=== PATIENT | female | born 1995 | race African-American/Black ===

== ENCOUNTER 2016-07-07 14:54 | Emergency (ER) | payer MEDICAID ==
[2016-07-07] MEDS ORDERED: LIDOCAINE 2% VISCOUS SOLN 20 ML UDCUP PO ONE (15:57)
[2016-07-07] MEDS ORDERED: MAG HYDROX/AL HYDROX/SIMETH SUSP 30 ML UDCUP PO ONE (15:57)
--- NOTE | 2016-07-07 15:59 | ER Document Report ---
ED Medical Screen (RME) - General Chief Complaint: Abdominal Pain Stated Complaint: ABDOMINAL PAIN Time Seen by Provider: 07/07/16 15:56 Mode of Arrival: Ambulatory Information source: Patient Notes: Complains of upper abdominal pain for the past week. Patient denies any nausea , vomiting or diarrhea. Patient denies any fever or cough. Patient states last bowel movement was over 10 days ago. hx: TRAVEL OUTSIDE OF THE [place] IN LAST 30 DAYS: No - Related Data Allergies/Adverse Reactions: No Known Allergies Allergy (Verified 09/13/15 18:46) Past Medical History - Social History Chew tobacco use (# tins/day): No Frequency of alcohol use: None Drug Abuse: None Renal/ Medical History: Denies: Hx Peritoneal Dialysis Surgical Hx: Negative - Immunizations Hx Diphtheria, Pertussis, Tetanus Vaccination: Yes Physical Exam - Vital signs Vitals: Temp Pulse Resp BP Pulse Ox 98.7 F 82 14 113/62 100 07/07/16 15:00 07/07/16 15:00 07/07/16 15:00 07/07/16 15:00 07/07/16 15:00 - Abdominal Tenderness: Tender - Epigastric Course - Vital Signs Vital signs: Temp Pulse Resp BP Pulse Ox 98.7 F 82 14 113/62 100 07/07/16 15:00 07/07/16 15:00 07/07/16 15:00 07/07/16 15:00 07/07/16 15:00
[2016-07-07 16:50] LABS: ABSOLUTE EOSINOPHILS # (AUTO) 0.1 10^3/uL (0.0-0.6); ABSOLUTE LYMPHOCYTES (AUTO) 1.7 10^3/uL (0.5-4.7); ABSOLUTE MONOCYTES (AUTO) 0.4 10^3/uL (0.1-1.4); ABSOLUTE NEUT (AUTO) 3.9 10^3/uL (1.7-8.2); BASOPHILS % (AUTO) 0.4 % (0-2); EOSINOPHILS % (AUTO) 2.3 % (0-6); HEMATOCRIT 35.9 % (36.0-47.0); HEMOGLOBIN 11.8 g/dL (12.0-15.5); HGB HCT DIFFERENCE -0.5; LYMPHOCYTES % (AUTO) 27.2 % (13-45); MEAN CORPUSCULAR HEMOGLOBIN 26.3 pg (27.0-33.4); MEAN CORPUSCULAR HGB CONC 32.8 g/dL (32.0-36.0); MEAN CORPUSCULAR VOLUME 80 fl (80-97); MONOCYTES % (AUTO) 6.1 % (3-13); RED BLOOD COUNT 4.47 10^6/uL (3.72-5.28); RED CELL DISTRIBUTION WIDTH 14.1 % (11.5-14.0); WHITE BLOOD COUNT 6.1 10^3/uL (4.0-10.5)
[2016-07-07 17:07] LABS: ALANINE AMINOTRANSFERASE 70 U/L (9-52); ALBUMIN 4.3 g/dL (3.5-5.0); ALKALINE PHOSPHATASE 65 U/L (38-126); ANION GAP 14 (5-19); ASPARTATE AMINO TRANSFERASE 53 U/L (14-36); BILIRUBIN,DIRECT 0.2 mg/dL (0.0-0.4); BILIRUBIN,TOTAL 0.4 mg/dL (0.2-1.3); BLOOD UREA NITROGEN 5 mg/dL (7-20); CALCIUM 9.7 mg/dL (8.4-10.2); CARBON DIOXIDE 22 mmol/L (22-30); CHLORIDE 106 mmol/L (98-107); CREATININE RESULT 0.82 mg/dL (0.52-1.25); GLUCOSE 81 mg/dL (75-110); LIPASE 135.8 U/L (23-300); POTASSIUM 4.3 mmol/L (3.6-5.0); SODIUM 141.6 mmol/L (137-145); TOTAL PROTEIN 7.8 g/dL (6.3-8.2)
[2016-07-07 17:42] LABS: APPEARANCE,URINE CLOUDY; BILIRUBIN,URINE NEGATIVE (NEGATIVE); GLUCOSE, URINE NEGATIVE (NEGATIVE); KETONES,URINE NEGATIVE (NEGATIVE); LEUKOCYTE ESTERASE,URINE MODERATE (NEGATIVE); NITRITE,URINE NEGATIVE (NEGATIVE); PROTEIN,URINE NEGATIVE (NEGATIVE); URINE SPECIFIC GRAVITY 1.024; UROBILINOGEN,URINE NEGATIVE mg/dL (<2.0)
[2016-07-07 18:18] LABS: ADD ON TESTING BLD IN LAB ACKNOWLEDGE
[2016-07-07] MEDS ORDERED: CEPHALEXIN 250 MG CAPSULE PO ONE (19:43)
--- NOTE | 2016-07-07 19:44 | ER Document Report ---
ED GI/ - General Chief Complaint: Abdominal Pain Stated Complaint: ABDOMINAL PAIN Time Seen by Provider: 07/07/16 15:56 Mode of Arrival: Ambulatory Information source: Patient Notes: Patient is a 21-year-old who presents to the ER today for upper abdominal pain 1 week that has been constant and "achy" in nature. Patient admits to nausea but no vomiting or diarrhea. She has no history of stomach ulcers that she knows of. She has had increased belching and gas pains, but denies constipation. Last bowel movement was yesterday and normal. She denies any fever, chills, dysuria, abnormal vaginal discharge, lower abdominal pain. TRAVEL OUTSIDE OF THE [place] IN LAST 30 DAYS: No - Related Data Allergies/Adverse Reactions: No Known Allergies Allergy (Verified 09/13/15 18:46) Past Medical History - General Information source: Patient - Social History Smoking Status: Never Smoker Chew tobacco use (# tins/day): No Frequency of alcohol use: None Drug Abuse: None Family History: Reviewed & Not Pertinent Renal/ Medical History: Denies: Hx Peritoneal Dialysis Surgical Hx: Negative - Immunizations Hx Diphtheria, Pertussis, Tetanus Vaccination: Yes Review of Systems - Review of Systems Constitutional: No symptoms reported EENT: No symptoms reported Cardiovascular: No symptoms reported Respiratory: No symptoms reported Gastrointestinal: See HPI Genitourinary: No symptoms reported Female Genitourinary: No symptoms reported Musculoskeletal: No symptoms reported Skin: No symptoms reported Hematologic/Lymphatic: No symptoms reported Neurological/Psychological: No symptoms reported Physical Exam - Vital signs Vitals: Temp Pulse Resp BP Pulse Ox 98.7 F 82 14 113/62 100 07/07/16 15:00 07/07/16 15:00 07/07/16 15:00 07/07/16 15:00 07/07/16 15:00 - Notes Notes: Potassium PHYSICAL EXAMINATION: GENERAL: Well-appearing and in no acute distress. HEAD: Atraumatic, normocephalic. EYES: Pupils equal round and reactive to light, extraocular movements intact, sclera anicteric, conjunctiva are normal. NECK: Normal range of motion, supple without lymphadenopathy LUNGS: CTAB and equal. No wheezes rales or rhonchi. HEART: Regular rate and rhythm without murmurs ABDOMEN: Soft, Mild epigastric tenderness. No guarding, no rebound BACK: no vertebral tenderness, normal ROM GI/: no CVA tenderness EXTREMITIES: Normal range of motion, no pitting edema. No cyanosis. NEUROLOGICAL: Cranial nerves grossly intact. Normal sensory/motor exams. PSYCH: Normal mood, normal affect. SKIN: Warm, Dry, normal turgor, no rashes or lesions noted Course - Re-evaluation Re-evalutation: 07/07/16 20:03 patient's serum hCG is positive, patient did not know she was . She is denying any pelvic pain, abnormal vaginal discharge or bleeding. At this time his GI cocktail did relieve her epigastric pain. I will treat her with Carafate and Zantac prescriptions and have advised her to start vitamins and call for an appointment for [facility]. - Vital Signs Vital signs: Temp Pulse Resp BP Pulse Ox 98.7 F 84 17 115/65 99 07/07/16 15:00 07/07/16 20:21 07/07/16 20:21 07/07/16 20:21 07/07/16 20:21 - Laboratory Result Diagrams: 07/07/16 16:31 07/07/16 16:31 Laboratory results interpreted by me: 07/07/16 07/07/16 07/07/16 16:31 16:31 16:31 Hgb 11.8 L Hct 35.9 L MCH 26.3 L RDW 14.1 H BUN 5 L AST 53 H ALT 70 H Serum HCG, Qual POSITIVE H Beta HCG, Quant Ur Leukocyte Esterase 07/07/16 07/07/16 16:31 16:31 Hgb Hct MCH RDW BUN AST ALT Serum HCG, Qual Beta HCG, Quant 4339.60 H Ur Leukocyte Esterase MODERATE H Discharge - Discharge Clinical Impression: Epigastric pain Qualifiers: Weeks of gestation: less than 8 weeks Qualified Code(s): Z3A.01 - Less than 8 weeks gestation of Condition: Stable Disposition: HOME, SELF-CARE Additional Instructions: Start vitamins! Return immediately for any new or worsening symptoms. Follow up with [facility]/primary care provider, call tomorrow to make followup appointment. Prescriptions: Ranitidine HCl [Zantac 75 mg Tablet] 1 - 2 tab PO Q12 PRN #30 tablet PRN Reason: Sucralfate [Carafate 1 gm Tablet] 1 gm PO ACHS #40
[2016-07-07] MEDS ORDERED: SUCRALFATE 1 GM TABLET PO ONE (19:59)
[2016-07-07] MEDS ORDERED: FAMOTIDINE 20 MG TABLET PO ONE (19:59)
[2016-07-07 20:23] VITALS: BP 115/65
== END 2016-07-07 20:21 | disposition home or self-care (01) ==
LOC: ER 14:54
DX: O26.891 Other specified pregnancy related conditions, first trimester (principal); R10.13 Epigastric pain; R11.0 Nausea; R14.2 Eructation; R14.1 Gas pain; Z3A.01 Less than 8 weeks gestation of pregnancy
CPT/HCPCS: 99284; 36415; 84702; 83690; 84703; 85025; 80053; 81001; J3490

== ENCOUNTER 2017-02-02 13:46 | Outpatient (CLI) | payer MEDICAID ==
[2017-02-02 15:23] LABS: APPEARANCE,URINE CLEAR; BILIRUBIN,URINE NEGATIVE (NEGATIVE); GLUCOSE, URINE NEGATIVE (NEGATIVE); KETONES,URINE NEGATIVE (NEGATIVE); LEUKOCYTE ESTERASE,URINE TRACE (NEGATIVE); NITRITE,URINE NEGATIVE (NEGATIVE); PROTEIN,URINE NEGATIVE (NEGATIVE); URINE SPECIFIC GRAVITY 1.004; UROBILINOGEN,URINE NEGATIVE mg/dL (<2.0)
[2017-02-02 15:35] LABS: URINE BARBITURATES SCREEN NEGATIVE; URINE METHADONE SCREEN NEGATIVE; URINE OPIATES LOW NEGATIVE; URINE PHENCYCLIDINE SCREEN NEGATIVE
--- NOTE | 2017-02-02 15:41 | Non Stress Test Report ---
Non Stress Test Datetime Report Generated by CPN: 02/02/2017 15:41 DEMOGRAPHIC EGA NST: 35.1 INDICATION Indication for Study: Ordered by Provider MONITORING Monitor Explained: Monitor Explained; Test Explained; Patient Verbalized Understanding Time on Monitor: 02/02/2017 13:35 Time off Monitor: 02/02/2017 15:22 NST Duration: 107 NST INTERVENTIONS NST Interventions: PO Hydration; Reposition Patient Physician Notified NST: P Luna CNM BABY A: [id number] BABY A Movement : Present Contraction Frequency : x2 FHR Baseline : 155 Accelerations : 15X15 Decelerations : None Variability : Moderate 6-25bpm NST Review: Meets Criteria for Reactive NST NST Review and Verified By : VANNESA Mckeon Results: Reactive NST REPORT Report Trigger: Send Report
== END 2017-02-02 15:36 | disposition home or self-care (01) ==
LOC: LC 13:46
PROVIDERS: ATTEND Student in an Organized Health Care Education/Training Program
PROC: 4A1HXCZ Monitoring of Products of Conception, Cardiac Rate, External Approach (ICD-10-PCS; principal; 2017-02-02)
DX: O98.813 Other maternal infectious and parasitic diseases complicating pregnancy, third trimester (principal); B37.9 Candidiasis, unspecified; Z3A.35 35 weeks gestation of pregnancy
CPT/HCPCS: 59025; 80307; 81001; 87210

== ENCOUNTER 2017-02-09 09:45 | Outpatient (CLI) | payer MEDICAID | END 2017-02-09 11:31 | disposition home or self-care (01) | LOC: LC 09:45 | PROVIDERS: ATTEND Obstetrics & Gynecology | PROC: 4A1HXCZ Monitoring of Products of Conception, Cardiac Rate, External Approach (ICD-10-PCS; principal; 2017-02-09) | DX: O47.03 False labor before 37 completed weeks of gestation, third trimester (principal); Z3A.35 35 weeks gestation of pregnancy | CPT/HCPCS: 59025 ==

== ENCOUNTER 2017-03-04 21:37 | Inpatient (IN) | payer MEDICAID ==
--- NOTE | 2017-03-04 21:43 | Non Stress Test Report ---
Non Stress Test Datetime Report Generated by CPN: 03/04/2017 21:43 DEMOGRAPHIC EGA NST: 35.1 INDICATION Indication for Study: Other Indication for Study (NST) Other: labor check MONITORING Monitor Explained: Monitor Explained; Test Explained; Patient Verbalized Understanding Time on Monitor: 02/09/2017 10:05 Time off Monitor: 02/09/2017 11:23 NST Duration: 78 NST INTERVENTIONS NST Interventions: None Physician Notified NST: AWynn CNM BABY A: [id number] BABY A Movement : Present Contraction Frequency : Irregular FHR Baseline : 135 Accelerations : 15X15 Decelerations : None Variability : Moderate 6-25bpm NST Review: Meets Criteria for Reactive NST NST Review and Verified By : A Agrawal RN NST Results: Reactive NST REPORT Report Trigger: Send Report
[2017-03-04 22:02] LABS: APPEARANCE,URINE CLOUDY; BILIRUBIN,URINE NEGATIVE (NEGATIVE); COLOR,URINE YELLOW; GLUCOSE, URINE NEGATIVE (NEGATIVE); KETONES,URINE NEGATIVE (NEGATIVE); LEUKOCYTE ESTERASE,URINE MODERATE (NEGATIVE); NITRITE,URINE NEGATIVE (NEGATIVE); PROTEIN,URINE NEGATIVE (NEGATIVE); URINE SPECIFIC GRAVITY 1.006; UROBILINOGEN,URINE NEGATIVE mg/dL (<2.0)
[2017-03-04 22:22] LABS: URINE AMPHETAMINES SCREEN NEGATIVE; URINE BARBITURATES SCREEN NEGATIVE; URINE BENZODIAZEPINES SCREEN NEGATIVE; URINE COCAINE SCREEN NEGATIVE; URINE MARIJUANA (THC) SCREEN NEGATIVE; URINE METHADONE SCREEN NEGATIVE; URINE PHENCYCLIDINE SCREEN NEGATIVE
[2017-03-04] MEDS ORDERED: CEFAZOLIN INJ 1 GM VIAL ONE (23:21)
[2017-03-04] MEDS ORDERED: CITRIC ACID/SODIUM CITRATE ORAL SOLN 15 ML UDCUP ONE (23:21)
[2017-03-04] MEDS ORDERED: CEFAZOLIN 2 GM/D5W RTU 2 GM/50 ML RTUPB IV ONE (23:21)
[2017-03-04 23:49] LABS: ABSOLUTE MONOCYTES (AUTO) 0.7 10^3/uL (0.1-1.4); ABSOLUTE NEUT (AUTO) 5.5 10^3/uL (1.7-8.2); BASOPHILS % (AUTO) 0.4 % (0-2); EOSINOPHILS % (AUTO) 0.3 % (0-6); HEMATOCRIT 28.2 % (36.0-47.0); HEMOGLOBIN 9.3 g/dL (12.0-15.5); LYMPHOCYTES % (AUTO) 24.2 % (13-45); MEAN CORPUSCULAR HEMOGLOBIN 23.9 pg (27.0-33.4); MEAN CORPUSCULAR VOLUME 72 fl (80-97); MONOCYTES % (AUTO) 8.8 % (3-13); PLATELET COUNT 232 10^3/uL (150-450); RED CELL DISTRIBUTION WIDTH 17.6 % (11.5-14.0); SEGMENTED NEUTROPHILS % (AUTO) 66.3 % (42-78); TOTAL CELLS COUNTED % (AUTO) 100 %; WHITE BLOOD COUNT 8.3 10^3/uL (4.0-10.5)
[2017-03-04] MEDS ORDERED: OXYTOCIN 10 UNIT/ML VIAL ONE (23:49)
[2017-03-04] MEDS ORDERED: FENTANYL CITRATE INJ/PF 100 MCG/2 ML AMPUL ONE (23:49)
[2017-03-04] MEDS ORDERED: MIDAZOLAM 2 MG/2 ML INJ ONE (23:49)
[2017-03-04] MEDS ORDERED: MORPHINE SULFATE 10 MG/ML INJ ONE (23:49)
[2017-03-04] MEDS ORDERED: OXYTOCIN/NORMAL SALINE 20 UNIT/1,000 ML RTUINJ ONE (23:49)
[2017-03-05] MEDS ORDERED: MEPERIDINE HCL/PF INJ 25 MG/1 ML DISP.SYRIN ONE ×2 (01:17→01:31)
[2017-03-05] MEDS ORDERED: MISOPROSTOL 0.2 MG TABLET ONE (01:32)
[2017-03-05] MEDS ORDERED: FENTANYL CITRATE INJ/PF 100 MCG/2 ML AMPUL ONE (02:01)
--- NOTE | 2017-03-05 02:13 | Delivery Summary ---
Del Sum A-C Datetime Report Generated by CPN: 03/05/2017 02:12 DELIVERY PERSONNEL DELIVERY PERSONNEL: [id number] Delivery Doctor:: Dr. Montes De Oca Anesthesiologist:: Giovana Judge MD PUTTY REMOVER:: Herson Rodriguez CRNA Labor and Delivery Nurse:: Cynthia Encarnacion RN Neonatal Nurse Practitioner:: YULISA Ramsey Nursery Nurse:: Cassie Vegas RN Emergency Planning And Response Manager/VIBRATION TECHNICIAN: Bhavani Osman CST Emergency Planning And Response Manager/VIBRATION TECHNICIAN: Margarita Kessler, ST MATERNAL INFORMATION Delivery Anesthesia: Spinal Medications After Delivery: Pitocin Bolus-Please Comment Meds After Delivery Comment: pitocin 20 units in 1000 ml NS Maternal Complications: Precipitous Labor (<3hrs) LABOR SUMMARY EDC: 03/15/2017 00:00 No. Babies in Womb: 0 Attempted: No Labor Anesthesia: None LABOR INFORMATION Reason for Induction: Not Applicable Onset of Labor: 03/04/2017 09:00 Oxytocin: N/A Group B Beta Strep: negative Antibiotics # of Doses: 1 Antibiotics Time of Last Dose: 2250 Name of Antibiotic Given: ancef 2 gm Steroids Given: None Reason Steroids Not Administered: Not Applicable MEMBRANES Membranes Rupture Method: Artificial Rupture of Membranes: 03/05/2017 00:10 Length of Rupture (hr): 0.12 Amniotic Fluid Color: Clear Amniotic Fluid Amount: None Amniotic Fluid Odor: Normal STAGES OF LABOR Stage 3 hr: 0 Stage 3 min: 1 Total Time in Labor hr: 15 Total Time in Labor min: 18 VAGINAL DELIVERY Episiotomy: None Laceration #1: None Laceration Extension #1: N/A Laceration Repair: Not Applicable Sponge Count Correct: N/A Sharps Count Correct: N/A CSECTION DELIVERY Primary Indication: Repeat Elective CSection Urgency: Non-Scheduled CSection Incidence: Repeat Labor: Labor Elective: Nonelective CSection Incision: Lower Uterine Transverse Sterilization Procedure: [place] Uterine Closure: Single-layer closure BABY A INFORMATION Delivery Date/Time: 03/05/2017 00:17 Method of Delivery: Born in Route : No : N/A Forceps: N/A Vacuum Extraction: N/A Shoulder Dystocia : No PRESENTATION/POSITION BABY A Presentation: Cephalic Cephalic Presentation: Vertex Vertex Position: Left Occipital Anterior Breech Presentation: N/A PLACENTA INFORMATION BABY A Placenta Delivery Time : 03/05/2017 00:18 Placenta Method of Delivery: Manual Removal Placenta Status: Delivered SCORES BABY A Heart Rate 1 min: >100 bpm Resp Effort 1 min: Good Cry Reflex Irritability 1 min: Cough or Sneeze or Pulls Away Muscle Tone 1 min: Active Motion Color 1 min: Body [place], Extremities Blue Resuscitation Effort 1 min: Tactile Stimulation SCORE 1 MIN: 9 Heart Rate 5 min: >100 bpm Resp Effort 5 min: Good Cry Reflex Irritability 5 min: Cough or Sneeze or Pulls Away Muscle Tone 5 min: Active Motion Color 5 min: Body [place], Extremities Blue Resuscitation Effort 5 min: Tactile Stimulation SCORE 5 MIN: 9 INFORMATION BABY A Gestational Age at Delivery: 38.4 Gestational Status: Early Term- 37- 38.6 Weeks Outcome : Liveborn Condition : Stable Sex: Male IDENTIFICATION BABY A Verification Date/Time: 03/05/2017 00:35 ID Band Number: [id number] Mother's Name Verified: Yes RN Verifying Infant: E. Jilek/ B. Ring WEIGHT/LENGTH BABY A Infant Birthweight (gm): 3785 Infant Weight (lb): 8 Infant Weight (oz): 6 Length (in): 19.50 Length (cm): 49.53 CORD INFORMATION BABY A No. Cord Vessels: 3 Nuchal Cord : N/A Cord Blood Taken: Yes-For Storage (Mom's Blood type +) Infant Suction: Mouth; Nose ASSESSMENT BABY A Complications: None Physical Findings at Delivery: Within Normal Limits Infant Respirations: Appears Normal Skin to Skin: No Housing Manager/ALS Called : No Transferred To: Nursery BABY B INFORMATION : N/A SIGNATURES Signature: with User ID: [email or web address] : I was personally available for consultation and serving as supervising physician for the MLP.
[2017-03-05] MEDS: RINGERS SOLUTION,LACTATED 1,000 ML IV PRN ×2 (02:38→02:39)
--- NOTE | 2017-03-05 03:02 | Admission Physical ---
Datetime Report Generated by CPN: 03/05/2017 03:02 CURRENT ADMISSION Chief Complaint: Uterine Contractions Indication for Induction: Not Applicable Indication for Induction: Term, Intrauterine ; Active Labor; Repeat Section Admit Plan: Admit to Unit; Initiate Section Protocol ALLERGIES Medication Allergies: No Medication Allergies: No Known Allergies (02/02/2017) Medication Allergies: No Known Allergies (09/13/2015) Latex: No Latex Allergies OBSTETRICAL HISTORY EDC: 03/15/2017 00:00 : 2 Para: 1 Term: 1 : 0 SAB: 0 IAB: 0 Ectopic: 0 Livin Cesareans: 1 VBACs: 0 Multiple Births: 0 Gestational Diabetes: No Rh Sensitization: No Incompetent Cervix: No JUAQUIN: No Infertility: No ART Treatment: No Uterine Anomaly: No IUGR: No Hx Previous C/S: Yes Macrosomia: No Hx Loss/Stillborn: No PIH: No Hx : No Placenta Previa/Abruption: No Depression/PP Depression: No PTL/PROM: No Post Hemorrhage: No Current Procedures: Ultrasound; NST Obstetrical History Comments: G1: September 15, 2015 C/S at 37 weeks G2: current SEE RECORDS Alcohol: No Marijuana : No Cocaine: No Other Illicit Drugs: No Cigarettes: Never Smoker. [id number] MEDICAL HISTORY Diabetes: No Blood Transfusion: No Pulmonary Disease (Asthma, TB): No Breast Disease: No Hypertension: No Cloth Sponger Surgery: No Heart Disease: No Hosp/Surgery: No Autoimmune Disorder: No Anesthetic Complications: No Kidney Disease: No Abnormal Pap Smear: No Neuro/Epilepsy: No Psychiatric Disorders: No Other Medical Diseases: No Hepatitis/Liver Disease: No Significant Family History: No Varicosities/Phlebitis: No Trauma/Violence : No Thyroid Dysfunction: No INFECTIOUS HISTORY Gonorrhea: No Genital Herpes: No Chlamydia: No Tuberculosis: No Syphilis: No Hepatitis: No HIV/AIDS Exposure: No Rash or Viral Illness: No HPV: No PHYSICAL EXAM General: Normal HEENT: Normal Neurologic: Normal Heart: Normal Lungs: Normal Abdomen: Normal Genitourinary Exam: Normal Extremities: Normal Pelvic Type: Adequate Vital Signs: Reviewed; Within Normal Limits VAGINAL EXAM Dilatation: 6 Effacement: 100 Station: -2 Contraction Comments: q 2-4min MEMBRANES Membranes: Intact FETUS A EGA: 38.3 FHR- Baseline: 135 Variability: Moderate 6-25bpm Accelerations: 15X15 Decelerations: None FHR Category: Category I Admit Comment: Prior in active labor. Consented to proceed with with BTL. PN records indicate patient's desire for BTL and papers signed. PLANS FOR LABOR AND DELIVERY Labor and Delivery: None Pain Management: Spinal Feeding Preference: Formula Benefit of Breast Feed Discussed: Yes Circumcision: Yes INFORMED CONSENT Signature: with User ID: [email or web address]
[2017-03-05] MEDS ORDERED: OXYCODONE-ACETAMINOPHEN 5-325 MG TABLET PO PRN (04:12)
[2017-03-05] MEDS ORDERED: OXYTOCIN/NORMAL SALINE 20 UNIT/1,000 ML RTUINJ IV PRN (04:12)
[2017-03-05] MEDS ORDERED: PROMETHAZINE HCL INJ 25 MG/1 ML VIAL IV PRN (04:12)
[2017-03-05] MEDS ORDERED: DIPH/PERTUSS(ACELL)/TETANUS VAC/PF 0.5 ML SYR (>=10YO) IM PRN (04:12)
[2017-03-05] MEDS ORDERED: ACETAMINOPHEN 325 MG TABLET PO PRN (04:12)
[2017-03-05] MEDS ORDERED: MEASLES,MUMPS&RUBELLA VACC/PF 0.5 ML VIAL SUBCUT PRN (04:12)
[2017-03-05] MEDS ORDERED: HYDROMORPHONE HCL INJ/PF 2 MG/ML AMPULE IV PRN (04:12)
[2017-03-05] MEDS ORDERED: SIMETHICONE 80 MG TAB.CHEW PO PRN (04:12)
[2017-03-05] MEDS: KETOROLAC TROMETHAMINE INJ/PF 30 MG/1 ML SDV IV SCH ×3 (05:50→22:50)
--- NOTE | 2017-03-05 08:33 | PDOC PROGRESS REPORT ---
Subjective-OB Subjective: Post Delivery Day: 0 21 year old. Denies any needs at this time, lochia is stable, eating breakfast , still has mccann in place, has not been up yet, pain well controlled with current meds. Physical Exam (OB) Vital Signs: Temp Pulse Resp BP Pulse Ox 97.7 F 72 20 122/66 100 03/05/17 07:03 03/05/17 07:03 03/05/17 07:03 03/05/17 07:03 03/05/17 07:03 Intake & Output 03/04/17 03/05/17 03/06/17 06:59 06:59 06:59 Intake Total 240 Output Total 1200 Balance -960 - PIH/Pre-Eclampsia DTR's: 2 + Clonus: Negative Headache: Absent Epigastric Pain: No Visual Changes: No - Dressing Removed: No Incision: Dressing, Well Approximated - Lochia Lochia Amount: Scant < 10 ml Lochia Color: Rubra/Red - Abdomen Description: Soft, Round Hernia Present: No Fundal Description: Firm, Midline Fundal Height: u/u - u/2 Objective-Diagnostic Laboratory: 03/04/17 23:33 03/04/17 03/04/17 03/04/17 21:43 23:33 23:33 WBC 8.3 RBC 3.90 Hgb 9.3 L Hct 28.2 L MCV 72 L MCH 23.9 L MCHC 33.0 RDW 17.6 H Plt Count 232 Seg Neutrophils % 66.3 Lymphocytes % 24.2 Monocytes % 8.8 Eosinophils % 0.3 Basophils % 0.4 Absolute Neutrophils 5.5 Absolute Lymphocytes 2.0 Absolute Monocytes 0.7 Absolute Eosinophils 0.0 Absolute Basophils 0.0 Urine Color YELLOW Urine Appearance CLOUDY Urine pH 7.0 Ur Specific [place] 1.006 Urine Protein NEGATIVE Urine Glucose (UA) NEGATIVE Urine Ketones NEGATIVE Urine Blood NEGATIVE Urine Nitrite NEGATIVE Ur Leukocyte Esterase MODERATE H Blood Type A POSITIVE Antibody Screen NEGATIVE Assessment and Plan(PN) - Assessment and Plan (1) Anemia affecting , antepartum Is this a current diagnosis for this admission?: Yes Plan: ferrous sulfate increase dietary iron pp cbc pending (2) Delivery by emergency caesarean section Is this a current diagnosis for this admission?: Yes Plan: routine post op care - Time Spent with Patient Time with patient: Less than 15 minutes Critical Time spent with patient: Less than 15 minutes Medications reviewed and adjusted accordingly: Yes - Disposition Anticipated Discharge: Home Within: within 48 hours
[2017-03-05] MEDS: PRENATAL VITAMIN W DHA CAPSULE PO SCH (09:49)
[2017-03-05] MEDS: DOCUSATE SODIUM 100 MG CAPSULE PO SCH ×2 (09:50→17:09)
[2017-03-05] MEDS: OXYCODONE-ACETAMINOPHEN 5-325 MG TABLET PO PRN (20:01)
[2017-03-06] MEDS: IBUPROFEN 800 MG TABLET PO SCH ×3 (05:06→17:42)
[2017-03-06 07:24] LABS: HEMATOCRIT 22.2 % (36.0-47.0); MEAN CORPUSCULAR HEMOGLOBIN 23.6 pg (27.0-33.4); MEAN CORPUSCULAR HGB CONC 32.8 g/dL (32.0-36.0); MEAN CORPUSCULAR VOLUME 72 fl (80-97); PLATELET COUNT 174 10^3/uL (150-450); RED BLOOD COUNT 3.07 10^6/uL (3.72-5.28); RED CELL DISTRIBUTION WIDTH 17.3 % (11.5-14.0); WHITE BLOOD COUNT 8.5 10^3/uL (4.0-10.5)
[2017-03-06 07:28] LABS: HEMOGLOBIN 7.3 g/dL (12.0-15.5)
--- NOTE | 2017-03-06 09:41 | PDOC PROGRESS REPORT ---
Subjective-OB Subjective: Post Delivery Day: 21 year old. Denies any needs at this time Doing well, family at , wants circumcision, bottle feeding, ambulating, voiding, eating well Physical Exam (OB) Vital Signs: Temp Pulse Resp BP Pulse Ox 98.3 F 86 14 117/83 100 03/06/17 08:39 03/06/17 08:39 03/06/17 08:39 03/06/17 08:39 03/06/17 08:39 Intake & Output 03/05/17 03/06/17 03/07/17 06:59 06:59 06:59 Intake Total 240 1000 Output Total 1200 1900 Balance -960 -900 - PIH/Pre-Eclampsia DTR's: 2 + Clonus: Negative Headache: Absent Epigastric Pain: No Visual Changes: No - Dressing Removed: No - pressure dressing Incision: Dressing - Lochia Lochia Amount: Small 10-25 ml Lochia Color: Rubra/Red - Abdomen Description: Tender, Soft Hernia Present: No Fundal Description: Firm, Midline Fundal Height: u/u - u/2 Objective-Diagnostic Laboratory: 03/06/17 06:49 03/06/17 06:49 WBC 8.5 RBC 3.07 L Hgb 7.3 L Hct 22.2 L MCV 72 L MCH 23.6 L MCHC 32.8 RDW 17.3 H Plt Count 174 Assessment and Plan(PN) - Assessment and Plan (1) delivery, delivered, current hospitalization Is this a current diagnosis for this admission?: Yes (2) Sterilization Is this a current diagnosis for this admission?: Yes - Time Spent with Patient Time with patient: Less than 15 minutes Medications reviewed and adjusted accordingly: Yes - Disposition Anticipated Discharge: Home Within: within 24 hours
[2017-03-06] MEDS: PRENATAL VITAMIN W DHA CAPSULE PO SCH (10:17)
[2017-03-06] MEDS: DOCUSATE SODIUM 100 MG CAPSULE PO SCH ×2 (10:17→17:42)
[2017-03-06] MEDS ORDERED: PHENYLEPHRINE HCL INJ/PF 10 MG/1 ML SDV ONE (13:54)
[2017-03-06] MEDS ORDERED: METOCLOPRAMIDE HCL INJ/PF 10 MG/2 ML SDV ONE (13:54)
[2017-03-06] MEDS: OXYCODONE-ACETAMINOPHEN 5-325 MG TABLET PO PRN (15:23)
[2017-03-07] MEDS: IBUPROFEN 800 MG TABLET PO SCH ×3 (00:27→11:39)
[2017-03-07] MEDS: OXYCODONE-ACETAMINOPHEN 5-325 MG TABLET PO PRN ×2 (07:27→11:41)
[2017-03-07] MEDS: DOCUSATE SODIUM 100 MG CAPSULE PO SCH (09:45)
[2017-03-07] MEDS: PRENATAL VITAMIN W DHA CAPSULE PO SCH (09:46)
--- NOTE | 2017-03-07 10:27 | PDOC DISCHARGE SUMMARY ---
Final Diagnosis Discharge Date: 03/07/17 - Final Diagnosis (1) Anemia affecting , antepartum Is this a current diagnosis for this admission?: Yes (2) delivery, delivered, current hospitalization Is this a current diagnosis for this admission?: Yes (3) Sterilization Is this a current diagnosis for this admission?: Yes Discharge Data - Discharge Medication Home Medications: No.116/Iron/Folic/Dha [Expecta Combo Pack] 1 tab PO DAILY Reason(s) for Admission: Onset of Labor, Ceasarean Section-Repeat Procedures: NST Intrapartum Procedure(s): : Low Cervical, Transverse - Diagnosis Test Laboratory: Temp Pulse Resp BP Pulse Ox 98.2 F 77 20 125/83 99 03/07/17 07:26 03/07/17 07:26 03/07/17 07:26 03/07/17 07:26 03/07/17 07:26 03/04/17 03/04/17 03/06/17 21:43 23:33 06:49 RBC 3.90 3.07 L Hgb 9.3 L 7.3 L Hct 28.2 L 22.2 L Urine Opiates Screen NEGATIVE - Discharge information/Instructions Discharge Activity: Balance Activity w/Rest, No Lifting Over 10 Pounds, No Lifting/Push/Pulling, Pelvic Rest, No tub bath Discharge Diet: Regular Disposition: HOME, SELF-CARE Follow up with: [facility] in: 2, Days
[2017-03-07 12:04] VITALS: BP 127/97
--- NOTE | 2017-04-18 13:03 | OPERATIVE REPORT E ---
Operative Report NAME: ILYA ACUNA : 1995 AGE: 21Y DATE OF SURGERY: ROOM: PREOPERATIVE DIAGNOSES: 1. ACTIVE LABOR, PRIOR SECTION. 2. DESIRES STERILITY. POSTOPERATIVE DIAGNOSES: 1. ACTIVE LABOR, PRIOR SECTION. 2. DESIRES STERILITY. OPERATION: Repeat low transverse section and bilateral tubal ligation, modified [place] method. SURGEON: BEAN ACOSTA M.D. ESTIMATED BLOOD LOSS: 500 mL. FINDINGS: A male in the vertex position. Weight of 3785 grams. 's of 8 and 9, normal uterus, tubes, and ovaries. SPECIMEN: Portion of right and left fallopian tubes sent to Pathology. INDICATIONS: Patient is a 21-year-old who presents in active labor at 6 cm. Patient had a history of a prior previous section. Therefore, decision was made to deliver via repeat section. Risks, benefits, indications, and alternatives of the procedure were explained and informed consent was obtained. PROCEDURE: Patient was taken to the operating room with IV fluids running. She was prepped and draped in the usual sterile fashion with a leftward tilt. A Pfannenstiel skin incision was made and carried down to the underlying fascia. The fascia was nicked in the midline. The incision was extended laterally. The superior aspect of the fascia was grasped with Tasneem clamps, and the underlying rectus muscles were dissected off. This was repeated on the inferior fascia. The rectus muscles were divided in the midline. The opening was extended. The bladder blade was placed. The vesicouterine peritoneum was grasped with pickups and entered sharply with the Metzenbaum's. A bladder flap was created digitally. The bladder blade was replaced. The hysterotomy incision was made and carried down to the underlying membranes which were ruptured. The opening was extended. The infant's head was grasped very atraumatically using a hysterotomy incision. The mouth and the nose were bulb suctioned. The anterior/posterior shoulders were delivered followed by the remainder of the body. The cord was clamped x2 and cut. The infant was handed to the awaiting nursery staff. The placenta was expressed. The uterus was exteriorized and cleared of all clot and debris. The hysterotomy incision was repaired with a #0 Monocryl in a running lock fashion. Attention was turned to the patient's left tube with avascular run in the mesosalpinx was grasped with Alirio clamp. An opening was made in it with the Bovie cautery. Two pieces of plain gut suture were passed through the opening and the tube was tied 3 cm lateral to the uterine cornua. The tube was cut. The cut edges were made hemostatic. This was repeated on the patient's right tube. The uterus was returned to the abdomen. The abdomen and gutters were irrigated with copious amounts of warm normal saline. The incision was examined and found to be hemostatic. The peritoneum was closed in a running fashion with #2-0 Vicryl. The fascia was closed with a #0 Maxon. The skin was closed with jacqueline. Patient tolerated the procedure well. Sponge, needle, and instrument counts were correct x2, and the patient was taken to the recovery room in stable condition. DICTATING PHYSICIAN: BEAN ACOSTA M.D. [id number] PHY#: [id number] ID: [id number] JOB#: [id number] ACCT: [id number] cc:BEAN ACOSTA M.D. > MTDD
== END 2017-03-07 15:50 | disposition home or self-care (01) | DRG 766 ==
LOC: LC 21:37 → LR 23:15 → 2S 03-05 02:53
PROVIDERS: ADMIT Obstetrics & Gynecology; ATTEND Obstetrics & Gynecology
PROC: 4A1HXCZ Monitoring of Products of Conception, Cardiac Rate, External Approach (ICD-10-PCS; 2017-03-04)
PROC: 10D00Z1 Extraction of Products of Conception, Low, Open Approach (ICD-10-PCS; principal; 2017-03-05)
PROC: 0UB70ZZ Excision of Bilateral Fallopian Tubes, Open Approach (ICD-10-PCS; 2017-03-05)
DX: O34.211 Maternal care for low transverse scar from previous cesarean delivery (principal); O99.02 Anemia complicating childbirth; D64.9 Anemia, unspecified; O62.3 Precipitate labor; Z30.2 Encounter for sterilization; Z3A.38 38 weeks gestation of pregnancy; Z37.0 Single live birth
CPT/HCPCS: 1961; 36415; 59025; 80307; 81005; 85025; 85027; 86592; 86850; 86900; 86901; 88302; 94760; 94799; J0690; J1170; J1885; J2175; J2250; J2270; J2370; J2590; J2765; J3010; J3490

== ENCOUNTER → 2019-12-18 | Day surgery (SDC) | payer BC, MEDICAID ==
[~2019-12-18] MED LIST: DEXAMETHASONE SOD PHOSPHATE INJ 4 MG/1 ML VIAL ONE; FENTANYL CITRATE INJ/PF 100 MCG/2 ML AMPUL ONE; HYDROMORPHONE HCL INJ/PF 2 MG/ML AMPULE IV ONE; KETOROLAC TROMETHAMINE INJ/PF 30 MG/1 ML SDV IV ONE; LIDOCAINE 1% INJ-PF (10 MG/ML) 30 ML SDV INJ ONE; MIDAZOLAM 2 MG/2 ML INJ ONE; MORPHINE SULFATE 10 MG/ML INJ IV ONE; MORPHINE SULFATE 10 MG/ML INJ IV PRN; MORPHINE SULFATE 10 MG/ML INJ ONE; NORMAL SALINE 1000 ML 1,000 ML IV ONE; ONDANSETRON HCL INJ/PF 4 MG/2 ML SDV IV ONE; ONDANSETRON HCL INJ/PF 4 MG/2 ML SDV ONE; PROPOFOL INJ 200 MG/20 ML VIAL IV ONE; VANCOMYCIN HCL INJ 1000 MG VIAL IV ONE
[2019-12-18 09:45] LABS: ABSOLUTE EOSINOPHILS # (AUTO) 0.1 10^3/uL (0.0-0.6); ABSOLUTE LYMPHOCYTES (AUTO) 1.4 10^3/uL (0.5-4.7); ABSOLUTE MONOCYTES (AUTO) 0.4 10^3/uL (0.1-1.4); ABSOLUTE NEUT (AUTO) 6.4 10^3/uL (1.7-8.2); BASOPHILS % (AUTO) 0.4 % (0-2); EOSINOPHILS % (AUTO) 1.3 % (0-6); HEMATOCRIT 28.2 % (36.0-47.0); HEMOGLOBIN 9.1 g/dL (12.0-15.5); LYMPHOCYTES % (AUTO) 17.2 % (13-45); MEAN CORPUSCULAR HEMOGLOBIN 22.3 pg (27.0-33.4); MEAN CORPUSCULAR HGB CONC 32.3 g/dL (32.0-36.0); MEAN CORPUSCULAR VOLUME 69 fl (80-97); MONOCYTES % (AUTO) 5.2 % (3-13); PLATELET COUNT 303 10^3/uL (150-450); RED BLOOD COUNT 4.07 10^6/uL (3.72-5.28); RED CELL DISTRIBUTION WIDTH 17.8 % (11.5-14.0); SEGMENTED NEUTROPHILS % (AUTO) 75.9 % (42-78); TOTAL CELLS COUNTED % (AUTO) 100 %; WHITE BLOOD COUNT 8.4 10^3/uL (4.0-10.5)
--- NOTE | 2019-12-18 10:26 | ER Document Report ---
ED Breast Problem - General Chief Complaint: Breast Lump Stated Complaint: BREAST PAIN Time Seen by Provider: 12/18/19 09:07 Mode of Arrival: Ambulatory Information source: Patient TRAVEL OUTSIDE OF THE [place] IN LAST 30 DAYS: No - HPI Notes: Patient complains of several days of bilateral breast pain. The right breast is more painful than the left. She does feel an area on each breast that is specifically tender and that is swollen. She denies any known injuries. She states several months ago she did have the nipples of her breast pierced and she remove these piercings because she thought it may be related to the abscesses however the areas of tenderness so not close to the nipple. Patient denies any other types of known injury to the breast. She is not breast-feeding. The pain is been constant. It is worse with movement of the breast and better without. There is no significant radiation of the pain. Pain is been moderate to severe and a burning and aching sensation. - Related Data Allergies/Adverse Reactions: No Known Allergies Allergy (Verified 12/18/19 09:00) Home Medications: patient denies at this time. Past Medical History - General Information source: Patient - Social History Smoking Status: Never Smoker Chew tobacco use (# tins/day): No Frequency of alcohol use: Rare Drug Abuse: None Family History: Reviewed & Not Pertinent Patient has homicidal ideation: No Renal/ Medical History: Denies: Hx Peritoneal Dialysis Past Surgical History: Reports: Hx Section - x2 - Immunizations Hx Diphtheria, Pertussis, Tetanus Vaccination: Yes Review of Systems - Review of Systems Constitutional: denies: Chills, Fever Cardiovascular: denies: Palpitations, Dyspnea Respiratory: denies: Cough, Short of breath -: Yes All other systems reviewed and negative Physical Exam - Vital signs Vitals: Temp Pulse Resp BP Pulse Ox 99 F 99 17 133/77 H 100 12/18/19 08:30 12/18/19 08:30 12/18/19 08:30 12/18/19 08:30 12/18/19 08:30 Interpretation: Normal - General General appearance: Appears well, Alert - HEENT Head: Normocephalic, Atraumatic Eyes: Normal Pupils: PERRL - Respiratory Respiratory status: No respiratory distress Chest status: Nontender Breath sounds: Normal Chest palpation: Other - Right breast has an area at approximately 6:00 that is tender and fluctuant. Left breast has a similar area at approximate 6:00 that is tender and fluctuant. There is no nipple discharge. There is no discoloration of either breast. I do not appreciate any significant swelling. - Cardiovascular Rhythm: Regular Heart sounds: Normal auscultation Murmur: No - Abdominal Inspection: Normal Distension: No distension Bowel sounds: Normal Tenderness: Nontender Organomegaly: No organomegaly - Back Back: Normal, Nontender - Extremities General upper extremity: Normal inspection, Nontender, Normal color, Normal ROM, Normal temperature General lower extremity: Normal inspection, Nontender, Normal color, Normal ROM, Normal temperature, Normal weight bearing. No: Veronica's sign - Neurological Neuro grossly intact: Yes Cognition: Normal Orientation: AAOx4 Martin Coma Scale Eye Opening: Spontaneous Martin Coma Scale Verbal: Oriented Martin Coma Scale Motor: Obeys Commands Martin Coma Scale Total: 15 Speech: Normal Motor strength normal: LUE, RUE, LLE, RLE Sensory: Normal - Psychological Associated symptoms: Normal affect, Normal mood - Skin Skin Temperature: Warm Skin Moisture: Dry Skin Color: Normal Course - Re-evaluation Re-evalutation: 12/18/19 13:21 has bilat breast abscesses - Vital Signs Vital signs: Temp Pulse Resp BP Pulse Ox 99.0 F 99 17 133/77 H 100 12/18/19 08:59 12/18/19 08:30 12/18/19 08:30 12/18/19 08:30 12/18/19 08:30 - Laboratory Result Diagrams: 12/18/19 09:23 12/18/19 09:23 Laboratory results interpreted by me: 12/18/19 09:23 Hgb 9.1 L Hct 28.2 L MCV 69 L MCH 22.3 L RDW 17.8 H - Diagnostic Test Radiology reviewed: Image reviewed, Reports reviewed Discharge - Discharge Clinical Impression: Breast abscess Condition: Fair Disposition: SAME DAY SURGERY Admitting Provider: Surgicalist Unit Admitted: OR
[2019-12-18 10:29] LABS: ANION GAP 9 (5-19); BLOOD UREA NITROGEN 9 mg/dL (7-20); CALCIUM 9.3 mg/dL (8.4-10.2); CARBON DIOXIDE 25 mmol/L (22-30); CHLORIDE 107 mmol/L (98-107); GLUCOSE 84 mg/dL (75-110); POTASSIUM 4.3 mmol/L (3.6-5.0)
--- NOTE | 2019-12-18 16:49 | RADIOLOGY REPORT (SQ) ---
EXAM DESCRIPTION: U/S BREAST UNILATERAL LIMITED IMAGES COMPLETED DATE/TIME: 12/18/2019 11:57 am REASON FOR STUDY: right breast tender mass/left breast tender mass; Right breast mass COMPARISON: None TECHNIQUE: Static and Realtime grayscale interrogation of focal area of concern in the left breast a cquired. Selected color doppler/spectral images saved to PACS. LIMITATIONS: None. FINDINGS: Patient has a palpable tender left breast mass about the 7 o'clock position. Ultrasound o f this area demonstrates a hypoechoic fluid collection immediately deep to the skin surface, measurin g 2.2 x 1.6 x 0.5 cm in size. Increased surrounding vascularity. This likely represents an infected or inflamed sebaceous cyst. Masses:No cystic or solid masses identified Architecture:No alteration of normal morphology. No skin thickening. No edema. Other: None. IMPRESSION: Probable infected or inflamed sebaceous cyst left breast 7 o'clock position, just deep to the skin surface BIRAD: 2 Benign findings.. RECOMMENDATION: RECOMMENDED FOLLOW-UP: Follow-up as clinically indicated. COMMENT: The [employer] ([employer]) has developed recommendations for screening MRI of the breasts in certain patient populations, to be used in conjunction with mammography. Breast MRI s urveillance may be appropriate for women with more than 20% lifetime risk of developing breast cancer as determined by genetic testing, significant family history of the disease, or history of mantle r adiation for Hodgkins Disease. [employer]CR Practice Guidelines 2008. TECHNICAL DOCUMENTATION: FINDING NUMBER: (1) ASSESSMENT: (1) JOB ID: [id number] [employer]- All Rights Reserved Reading location - IP/workstation name: [id number]
[2019-12-18 19:13] VITALS: BP 113/70
--- NOTE | 2019-12-18 19:19 | Operative Report ---
Operative Report DATE OF SURGERY: 12/18/19 PREOPERATIVE DIAGNOSIS: Bilateral breast abscesses POSTOPERATIVE DIAGNOSIS: Same OPERATION: Incision and drainage of bilateral abscesses of the breasts SURGEON: BLANCHE MOMIN ANESTHESIA: Local TISSUE REMOVED OR ALTERED: Pus sent for culture COMPLICATIONS: None ESTIMATED BLOOD LOSS: 10 cc QUANTITATIVE BLOOD LOSS: 10 INTRAOPERATIVE FINDINGS: Large abscess on the right breast and smaller abscess on the left breast. The right abscess measured about 6 x 4 cm. The left breast abscess measured about 2 x 2 cm. PROCEDURE: After informed consent obtained patient was placed in supine position on the emergency room stretcher. Right breast was then prepped and draped in the usual sterile fashion. Local anesthesia infiltrated and breast inferior aspect about 3 cm above the chest wall. Incision was then made after patient given 2 mg of IV Dilaudid. Pus was drained and cultures were obtained. The incision was enlarged to about 5 cm in a transverse fashion almost unroofing the whole abscess cavity. The cavity was then irrigated and subsequently packed with quarter inch iodoform gauze. Sterile dressings placed over the operative site. Next attention then to the left breast. Left breast almost in the same site was then prepped and draped in the usual sterile fashion. Local anesthesia infiltrated over what appears to be a smaller abscess. A cyst 1 cm incision was made and pus obtained. The incision is slightly enlarged to about 2cm. The area was then irrigated with saline solution and subsequently packed with quarter inch iodoform gauze. Sterile dressings placed over the operative site. Patient tolerated procedure well. Patient will be discharged from the ED to be followed up in the clinic in about 2 days for removal of packing. Meantime, patient was prescribed Keflex Keflex 500 mg p.o. q. ID x7 days. Patient can take Tylenol 2 tabs every 4 hours as needed for pain.
--- NOTE | 2019-12-18 19:25 | PDOC H&P ---
History of Present Illness Admission Date/PCP: December 18, 2019 Patient complains of: Bilateral breast pains History of Present Illness: ILYA ACUNA is a 24 year old female who suddenly complained of bilateral breast pains about 5 days ago. This got worse today and went to ED where she was noted to have an abscess on the right breast inferior aspect about the fives to 6 cm in ultrasound on the left side smaller about 2 cm in diameter. This was then drained at the ED under local anesthesia. Cultures were then obtained. Patient is discharged to be followed up in the surgical clinic in 2 days for removal of packing and given prescription for Keflex 500 mg 4 times daily x7 days. Past Surgical History Past Surgical History: Reports: Section - x2 Social History Smoking Status: Never Smoker Electronic Cigarette use?: No Family History Family History: Reviewed & Not Pertinent Parental Family History Reviewed: Yes Children Family History Reviewed: No Sibling(s) Family History Reviewed.: No Medication/Allergy Home Medications: No.116/Iron/Folic/Dha [Expecta Combo Pack] 1 tab PO DAILY 08/06/15 Docusate Sodium [Colace 100 mg Capsule] 100 mg PO BID #60 capsule 03/07/17 Ferrous Sulfate 325 mg PO BID #60 tablet. 03/07/17 Ibuprofen [Motrin 800 mg Tablet] 800 mg PO Q6 #60 tablet 03/07/17 Oxycodone HCl/Acetaminophen [Percocet 5-325 mg Tablet] 1 tab PO Q4HP PRN #30 tablet 03/07/17 Allergies/Adverse Reactions: No Known Allergies Allergy (Verified 12/18/19 09:00) Review of Systems Constitutional: PRESENT: as per HPI, other - Denies fever but occasionally has some chills. Breasts: PRESENT: other - Bilateral breast pains. Physical Exam Vital Signs: Temp Pulse Resp BP Pulse Ox 99.0 F 99 16 113/70 100 12/18/19 08:59 12/18/19 08:30 12/18/19 17:14 12/18/19 19:01 12/18/19 19:01 Intake & Output 12/17/19 12/18/19 12/19/19 06:59 06:59 06:59 Intake Total 1000 Balance 1000 Weight 97.522 kg Exam: There is very large abscess on the inferior aspect of the right breast about 5 to 6 cm in diameter. On the left breast there is a smaller abscess about 2 x 2cm. These are noted to be very tender. No nipple discharge Results Laboratory Results: 12/18/19 09:23 12/18/19 09:23 12/18/19 12/18/19 09:23 09:23 WBC 8.4 RBC 4.07 Hgb 9.1 L Hct 28.2 L MCV 69 L MCH 22.3 L MCHC 32.3 RDW 17.8 H Plt Count 303 Seg Neutrophils % 75.9 Sodium 140.6 Potassium 4.3 Chloride 107 Carbon Dioxide 25 Anion Gap 9 BUN 9 Creatinine 0.78 Est GFR ( Amer) > 60 Glucose 84 Calcium 9.3 Impressions: Breast Ultrasound 12/18/19 09:34 IMPRESSION: Probable infected or inflamed sebaceous cyst left breast 7 o'clock position, just deep to the skin surface Assessment & Plan - Diagnosis (1) Bilateral breast abscesses Is this a current diagnosis for this admission?: Yes - Time Time Spent: 30 to 50 Minutes Anticipated Discharge Disposition: Home, Self Care Anticipated Discharge Timeframe: within 24 hours - Inpatient Certification Medical Necessity: Need for Neurological Checks, Need for IV Antibiotics, Need for Surgery - Plan Summary Plan Summary: 24-year-old female with about 6 days duration of pains in both breast shaded with chills. Pain is worse today went to ED. She was noted to have bilateral breast abscesses. These abscesses were then drained under local anesthesia and IV sedation with Dilaudid at bedside and ED. This were packed with iodoform gauze. Prescription for Keflex was given to the patient and advised to take Tylenol as needed for pain. Packing should be removed in the clinic in 2 days.
--- NOTE | 2019-12-18 19:57 | PDOC DISCHARGE SUMMARY ---
General - Admit/Disc Date/PCP Admission Date/Primary Care Provider: 12/18/2019 Discharge Date: 12/18/19 - Discharge Diagnosis Final Diagnosis: Bilateral breast abscesses - Assessment Summary: Patient with a breast pains bilateral for 6 days. Noted abscesses of both breasts in the ED. Abscesses were drained under local anesthesia with sedation by Dr. Glover on 12/18/2019. The abscesses were then packed with iodoform gauze. Patient instructed to take Keflex as needed for pain and to go to surgical clinic in 2 days for removal of packing. To take Tylenol as needed for pain. - Additional Information Resuscitation Status: Full Code Discharge Diet: As Tolerated Discharge Activity: Activity As Tolerated Home Medications: No.116/Iron/Folic/Dha [Expecta Combo Pack] 1 tab PO DAILY 08/06/15 Docusate Sodium [Colace 100 mg Capsule] 100 mg PO BID #60 capsule 03/07/17 Ferrous Sulfate 325 mg PO BID #60 tablet. 03/07/17 Ibuprofen [Motrin 800 mg Tablet] 800 mg PO Q6 #60 tablet 03/07/17 Oxycodone HCl/Acetaminophen [Percocet 5-325 mg Tablet] 1 tab PO Q4HP PRN #30 tablet 03/07/17 History of Present Illiness History of Present Illness: ILYA ACUNA is a 24 year old female who suddenly complained of bilateral breast pains about 5 days ago. This got worse today and went to ED where she was noted to have an abscess on the right breast inferior aspect about the fives to 6 cm in ultrasound on the left side smaller about 2 cm in diameter. This was then drained at the ED under local anesthesia. Cultures were then obtained. Patient is discharged to be followed up in the surgical clinic in 2 days for removal of packing and given prescription for Keflex 500 mg 4 times daily x7 days. Hospital Course Hospital Course: I&D of bilateral breast abscesses done in the ED by Dr. Reyez Physical Exam Vital Signs: Temp Pulse Resp BP Pulse Ox 99.0 F 99 16 113/70 100 12/18/19 08:59 12/18/19 08:30 12/18/19 17:14 12/18/19 19:01 12/18/19 19:01 Intake & Output 12/17/19 12/18/19 12/19/19 06:59 06:59 06:59 Intake Total 1000 Balance 1000 Weight 97.522 kg Results Laboratory Results: WBC 8.4 10^3/uL (4.0-10.5) 12/18/19 09:23 RBC 4.07 10^6/uL (3.72-5.28) 12/18/19 09:23 Hgb 9.1 g/dL (12.0-15.5) L 12/18/19 09:23 Hct 28.2 % (36.0-47.0) L 12/18/19 09:23 MCV 69 fl (80-97) L 12/18/19 09:23 MCH 22.3 pg (27.0-33.4) L 12/18/19 09: MCHC 32.3 g/dL (32.0-36.0) 12/18/19 09: RDW 17.8 % (11.5-14.0) H 12/18/19 09:23 Plt Count 303 10^3/uL (150-450) 12/18/19 09:23 Lymph % (Auto) 17.2 % (13-45) 12/18/19 09:23 [place] % (Auto) 5.2 % (3-13) 12/18/19 09:23 Eos % (Auto) 1.3 % (0-6) 12/18/19 09: Baso % (Auto) 0.4 % (0-2) 12/18/19 09:23 Absolute Neuts (auto) 6.4 10^3/uL (1.7-8.2) 12/18/19 09:23 Absolute Lymphs (auto) 1.4 10^3/uL (0.5-4.7) 12/18/19 09:23 Absolute Monos (auto) 0.4 10^3/uL (0.1-1.4) 12/18/19 09:23 Absolute Eos (auto) 0.1 10^3/uL (0.0-0.6) 12/18/19 09:23 Absolute Basos (auto) 0.0 10^3/uL (0.0-0.2) 12/18/19 09: Seg Neutrophils % 75.9 % (42-78) 12/18/19 09:23 Sodium 140.6 mmol/L (137-145) 12/18/19 09:23 Potassium 4.3 mmol/L (3.6-5.0) 12/18/19 09:23 Chloride 107 mmol/L (98-107) 12/18/19 09:23 Carbon Dioxide 25 mmol/L (22-30) 12/18/19 09:23 Anion Gap 9 (5-19) 12/18/19 09:23 BUN 9 mg/dL (7-20) 12/18/19 09:23 Creatinine 0.78 mg/dL (0.52-1.25) 12/18/19 09:23 Est GFR ( Amer) > 60 (>60) 12/18/19 09:23 Est GFR (MDRD) Non-Af > 60 (>60) 12/18/19 09:23 Glucose 84 mg/dL (75-110) 12/18/19 09:23 Calcium 9.3 mg/dL (8.4-10.2) 12/18/19 09:23 COVID-19 Source Cancelled 12/18/19 13:24 COVID-19 ([facility]) Cancelled 12/18/19 13:24 SARS-CoV-2 (PCR) NEGATIVE (NEGATIVE) 12/18/19 13:24 Impressions: Breast Ultrasound 12/18/19 00:00 IMPRESSION: Probable infected or inflamed sebaceous cyst left breast 7 o'clock position, just deep to the skin surface Breast Ultrasound 12/18/19 09:34 IMPRESSION: Probable infected or inflamed sebaceous cyst left breast 7 o'clock position, just deep to the skin surface Plan Time Spent: Less than 30 Minutes
== END ==
LOC: ER 08:25 → OROUT 13:26
PROVIDERS: ATTEND Surgery
DX: N61.1 Abscess of the breast and nipple (principal); R68.83 Chills (without fever); Z20.828 Contact with and (suspected) exposure to other viral communicable diseases
CPT/HCPCS: 10061; 99285; 96374; 96375; 36415; 87070; 87205; 85025; 87075; 87077; 80048; 76642; U0003; J3490; J1885; J2270; J1170; J2405; J3370; C9803; 87635; J1100; J2250; J2704; J3010